=== PATIENT | female | born 1985 | race Caucasian/White ===

== ENCOUNTER 2016-12-25 10:57 | Outpatient (CLI) | payer MEDICAID ==
[2016-12-25 11:48] LABS: BASOPHILS % (AUTO) 0.5 %; EOSINOPHILS % (AUTO) 0.1 %; HCT - HEMATOCRIT 39.2 % (37.0-47.0); HGB - HEMOGLOBIN 13.2 g/dL (12.0-16.0); LYMPHOCYTES # (AUTO) 1.2 10^3/uL (1.5-3.5); LYMPHOCYTES % (AUTO) 14.9 %; MEAN CORPUSCULAR HEMOGLOBIN 30.8 pg (27.0-31.0); MEAN CORPUSCULAR HGB CONC 33.7 g/dL (32.0-36.0); MEAN CORPUSCULAR VOLUME 91.6 fL (81.0-99.0); MEAN PLATELET VOLUME 7.7 fL (7.9-10.8); MONOCYTES # (AUTO) 0.3 10^3/uL (0.0-1.0); MONOCYTES % (AUTO) 3.3 %; NEUTROPHILS # (AUTO) 6.7 10^3/uL (1.5-6.6); NEUTROPHILS % (AUTO) 81.2 %; RED BLOOD COUNT 4.28 10^6/uL (4.20-5.40); RED CELL DISTRIBUTION WIDTH 13.1 % (12.0-15.0); UNCORRECTED WHITE BLOOD COUNT 8.3 x10^3/uL; WHITE BLOOD COUNT 8.3 x10^3/uL (4.8-10.8)
[2016-12-25 12:13] LABS: BILIRUBIN,URINE NEGATIVE (NEGATIVE)
[2016-12-27 16:21] LABS: TEST RESULT REPORT
== END 2016-12-25 10:58 | disposition home or self-care (01) ==
LOC: LAB 10:57
PROVIDERS: ATTEND Registered Nurse
DX: Z36.9 Encounter for antenatal screening, unspecified (principal)
CPT/HCPCS: 36415; 81001; 81599; 85025; 86762; 86850; 86900; 86901; 87340; 87389

== ENCOUNTER 2017-03-18 12:52 | Outpatient (CLI) | payer MEDICAID ==
--- NOTE | 2017-03-20 16:47 | Ultrasound Report ---
OB ANATOMY SCAN: 03/18/2017 CLINICAL INDICATION: anatomy. TECHNIQUE: Real-time scanning was performed with field representative/health education static images obtained. LAST MENSTRUAL PERIOD: 10/22/2016 Clinical Age: 21 weeks 0 days, doctor stated US Age: 21 weeks 0 days EFW Hadlock: 372 EFW% Hadlock: --- Heart Rate: 146 bpm EDC: 07/29/2017 US EDC: 07/29/2017 BPD Hadlock: 21 weeks 2 days; Mean mm 50 HC Hadlock: 20 weeks 6 days; Mean mm 184 AC Hadlock: 21 weeks 1 day; Mean mm 160 FL Hadlock: 20 weeks 1 day; Mean mm 32 Presentation: variable Placental Location: anterior Cervical Length: --- Amniotic Fluid: 15.13 cm FINDINGS: There is a single viable intrauterine gestation. By size, the fetus measures 21 weeks 0 days (21 weeks 0 days per office order). heart rate is 146 BPM. The placenta is anterior, without evidence of previa. Amniotic fluid volume is subjectively normal. The following anatomic structures were visualized and appear normal: The intracranial contents, including the ventricles and posterior fossa; the lips and orbits; the spine; the heart, including 4 chamber view and outflow tracts, and diaphragm; the abdominal contents, including the stomach, the bilateral kidneys, and urinary bladder, as well as a normal 3 vessel cord insertion; 4 limbs. Imaging of the profile is limited by positioning. No free fluid or adnexal lesion is appreciated. IMPRESSION: Single viable intrauterine gestation, with size in keeping with office dating. Limited visualization of the profile, due to positioning. Otherwise, normal anatomic survey. TD: 03/18/2017 19:51 [facility]
== END 2017-03-18 12:53 | disposition home or self-care (01) ==
LOC: DI 12:52
PROVIDERS: ATTEND Registered Nurse
DX: Z34.82 Encounter for supervision of other normal pregnancy, second trimester (principal)
CPT/HCPCS: 76811

== ENCOUNTER 2017-04-30 09:56 | Outpatient (CLI) | payer MEDICAID ==
[2017-04-30 11:53] LABS: MEAN CORPUSCULAR HEMOGLOBIN 31.2 pg (27.0-31.0); MEAN CORPUSCULAR HGB CONC 34.3 g/dL (32.0-36.0); MEAN CORPUSCULAR VOLUME 91.1 fL (81.0-99.0); RED BLOOD COUNT 3.83 10^6/uL (4.20-5.40); RED CELL DISTRIBUTION WIDTH 12.8 % (12.0-15.0); WHITE BLOOD COUNT 9.4 x10^3/uL (4.8-10.8)
[2017-04-30 12:09] LABS: ALBUMIN 3.1 g/dL (3.2-5.5); ALBUMIN/GLOBULIN RATIO 0.8 (1.0-2.2); BILIRUBIN,TOTAL 0.5 mg/dL (0.2-1.0); CALCIUM 8.4 mg/dL (8.5-10.3); CREATININE 0.5 mg/dL (0.4-1.0)
== END 2017-04-30 09:57 | disposition home or self-care (01) ==
LOC: LAB 09:56
PROVIDERS: ATTEND Registered Nurse
DX: Z34.82 Encounter for supervision of other normal pregnancy, second trimester (principal); L29.8 Other pruritus
CPT/HCPCS: 36415; 80053; 82239; 82950; 86850

== ENCOUNTER 2017-06-05 00:46 | Outpatient (CLI) | payer MEDICAID ==
[2017-06-05 01:17] VITALS: BP 111/75
[2017-06-05 01:18] LABS: BILIRUBIN,URINE NEGATIVE (NEGATIVE); GLUCOSE, URINE (UA) NEGATIVE (NEGATIVE); KETONES,URINE (UA) NEGATIVE (NEGATIVE); LEUKOCYTE ESTERASE, URINE TRACE (NEGATIVE); NITRITE,URINE NEGATIVE (NEGATIVE); OCCULT BLOOD,URINE NEGATIVE (NEGATIVE); PH,URINE 6.5 PH (5.0-7.5); PROTEIN,URINE NEGATIVE (NEGATIVE); UROBILINOGEN,URINE 0.2 (NORMAL) E.U./dL (NORMAL)
[2017-06-05 01:22] LABS: CLARITY,URINE CLEAR (CLEAR)
[2017-06-05 01:25] LABS: BACTERIA,URINE Few /HPF (None Seen); RBC,URINE 0-5 /HPF (0-5); SQUAMOUS EPITHELIAL CELL,UR FEW Squamous (<= Few)
== END 2017-06-05 02:00 | disposition home or self-care (01) ==
LOC: WFO 00:46 → FBP 00:47 → WFO 02:00
PROVIDERS: ATTEND Nurse Practitioner Obstetrics & Gynecology
DX: O99.89 Other specified diseases and conditions complicating pregnancy, childbirth and the puerperium (principal); R11.0 Nausea; R35.0 Frequency of micturition; Z3A.32 32 weeks gestation of pregnancy
CPT/HCPCS: 81001; 87086; 99212

== ENCOUNTER 2017-07-02 08:00 | Outpatient (CLI) | payer MEDICAID | END 2017-07-02 08:01 | disposition home or self-care (01) | LOC: LAB.R 08:00 | PROVIDERS: ATTEND Nurse Practitioner Obstetrics & Gynecology | DX: Z36.85 Encounter for antenatal screening for Streptococcus B (principal) | CPT/HCPCS: 87081 ==

== ENCOUNTER 2017-07-02 08:48 | Outpatient (CLI) | payer MEDICAID ==
--- NOTE | 2017-07-03 09:05 | Ultrasound Report ---
OB FOLLOWUP: 07/02/2017 CLINICAL INDICATION: Size, date discrepancy, evaluate growth. COMPARISON: 03/18/2017. TECHNIQUE: Real-time scanning was performed with inbound customer service representative static images obtained. LAST MENSTRUAL PERIOD: 10/22/2016 Clinical Age: 36 weeks 1 day US Age: 36 weeks 0 days EFW Hadlock: 2796 grams EFW% Hadlock: 43% Heart Rate: 136 bpm EDC: 07/29/2017 US EDC: 07/30/2017 BPD Hadlock: 36 weeks 1 day; Mean mm 89 HC Hadlock: 36 weeks 3 days; Mean mm 322 AC Hadlock: 36 weeks 1 day; Mean mm 322 FL Hadlock: 35 weeks 0 days; Mean mm 68 Presentation: cephalic Placental Location: anterior Cervical Length: not seen Amniotic Fluid: RG 22.9 cm; MVP 6.6 cm FINDINGS: There is a single viable intrauterine gestation, in cephalic presentation. heart rate is 136 BPM. The placenta is anterior, without evidence of previa. Amniotic fluid volume is normal, with an RG of 22.9. By size, the fetus measures 36 weeks 0 days (36 weeks 1 day by previous sonogram and office dating). Estimated weight by Hadlock method is 2796 grams. No free fluid or adnexal lesion is appreciated. IMPRESSION: SINGLE VIABLE INTRAUTERINE GESTATION, WITH EXPECTED GROWTH FROM PREVIOUS SONOGRAM. NORMAL RG. TD: 07/02/2017 09:57 MTDD
== END 2017-07-02 08:49 | disposition home or self-care (01) ==
LOC: DI 08:48
PROVIDERS: ATTEND Registered Nurse
DX: O26.843 Uterine size-date discrepancy, third trimester (principal)
CPT/HCPCS: 76816

== ENCOUNTER 2017-07-02 11:03 | Outpatient (CLI) | payer MEDICAID ==
[2017-07-02 11:13] VITALS: BP 127/77
== END 2017-07-02 11:50 | disposition home or self-care (01) ==
LOC: WFO 11:03 → FBP 11:04 → WFO 11:50
PROVIDERS: ATTEND Nurse Practitioner Obstetrics & Gynecology
DX: O36.8130 Decreased fetal movements, third trimester, not applicable or unspecified (principal); Z3A.36 36 weeks gestation of pregnancy; Z36.85 Encounter for antenatal screening for Streptococcus B; O26.843 Uterine size-date discrepancy, third trimester
CPT/HCPCS: 59025; 76816; 87081

== ENCOUNTER 2017-07-08 12:17 | Outpatient (CLI) | payer MEDICAID ==
[2017-07-08 13:05] LABS: BASOPHILS % (AUTO) 0.5 %; EOSINOPHILS % (AUTO) 0.5 %; HGB - HEMOGLOBIN 10.8 g/dL (12.0-16.0); LYMPHOCYTES # (AUTO) 1.5 10^3/uL (1.5-3.5); LYMPHOCYTES % (AUTO) 18.6 %; MEAN CORPUSCULAR HEMOGLOBIN 29.1 pg (27.0-31.0); MEAN CORPUSCULAR HGB CONC 33.2 g/dL (32.0-36.0); MEAN CORPUSCULAR VOLUME 87.5 fL (81.0-99.0); MEAN PLATELET VOLUME 9.1 fL (7.9-10.8); MONOCYTES # (AUTO) 0.3 10^3/uL (0.0-1.0); MONOCYTES % (AUTO) 3.9 %; NEUTROPHILS # (AUTO) 6.1 10^3/uL (1.5-6.6); NEUTROPHILS % (AUTO) 76.5 %; PLT - PLATELET COUNT 231 10^3/uL (130-450); RED BLOOD COUNT 3.71 10^6/uL (4.20-5.40); RED CELL DISTRIBUTION WIDTH 12.9 % (12.0-15.0)
[2017-07-08 13:09] LABS: URIC ACID 4.3 mg/dL (2.6-7.2)
[2017-07-08 13:17] LABS: CREATININE,URINE 22.2 mg/dL
[2017-07-08 13:28] VITALS: BP 112/84
[2017-07-08 13:31] LABS: TOTAL PROTEIN,URINE TIMED < 6 mg/dL
[2017-07-08 13:45] LABS: CREATININE 0.5 mg/dL (0.4-1.0)
== END 2017-07-08 14:00 | disposition home or self-care (01) ==
LOC: WFO 12:17 → FBP 12:19 → WFO 14:00
PROVIDERS: ATTEND Registered Nurse
DX: O13.3 Gestational [pregnancy-induced] hypertension without significant proteinuria, third trimester (principal); Z3A.37 37 weeks gestation of pregnancy
CPT/HCPCS: 36415; 59025; 82565; 82570; 83615; 84156; 84450; 84550; 85025

== ENCOUNTER 2017-07-13 13:44 | Outpatient (CLI) | payer MEDICAID ==
[2017-07-13] MEDS ORDERED: LACTATED RINGERS 1,000 ML IV ONE ×2 (14:46→14:50)
[2017-07-13] MEDS ORDERED: SODIUM CHLORIDE FLUSH 0.9% 10 ML SYRINGE ONE ×2 (14:47→16:28)
[2017-07-13 15:34] LABS: BILIRUBIN,URINE NEGATIVE (NEGATIVE); GLUCOSE, URINE (UA) NEGATIVE (NEGATIVE); KETONES,URINE (UA) NEGATIVE (NEGATIVE); LEUKOCYTE ESTERASE, URINE NEGATIVE (NEGATIVE); NITRITE,URINE NEGATIVE (NEGATIVE); OCCULT BLOOD,URINE NEGATIVE (NEGATIVE); PROTEIN,URINE NEGATIVE (NEGATIVE); UROBILINOGEN,URINE 0.2 (NORMAL) E.U./dL (NORMAL)
[2017-07-13 15:37] LABS: CLARITY,URINE CLEAR (CLEAR)
[2017-07-13 15:48] LABS: BACTERIA,URINE None Seen /HPF (None Seen); RBC,URINE None Seen /HPF (0-5); SQUAMOUS EPITHELIAL CELL,UR MOD Squamous (<= Few)
[2017-07-13 16:56] VITALS: BP 123/77
== END 2017-07-13 16:40 | disposition home or self-care (01) ==
LOC: WFO 13:44 → FBP 13:45 → WFO 16:40
PROVIDERS: ATTEND Registered Nurse
DX: O47.1 False labor at or after 37 completed weeks of gestation (principal); Z3A.37 37 weeks gestation of pregnancy
CPT/HCPCS: 81001; 99213; 99214; J7120; 87086

== ENCOUNTER 2017-07-13 19:08 | Outpatient (CLI) | payer MEDICAID ==
[2017-07-13 19:35] VITALS: BP 130/75
== END 2017-07-13 22:25 | disposition home or self-care (01) ==
LOC: WFO 19:08 → FBP 19:09 → WFO 22:25
PROVIDERS: ATTEND Registered Nurse
DX: O47.1 False labor at or after 37 completed weeks of gestation (principal); Z3A.37 37 weeks gestation of pregnancy
CPT/HCPCS: 99213

== ENCOUNTER 2017-07-21 09:57 | Inpatient (IN) | payer MEDICAID ==
[2017-07-21] MEDS ORDERED: SODIUM CHLORIDE FLUSH 0.9% 10 ML SYRINGE IVP PRN (10:05)
[2017-07-21] MEDS: SODIUM CHLORIDE FLUSH 0.9% 10 ML SYRINGE IVP SCH ×2 (11:08→21:17)
[2017-07-21 11:24] LABS: BASOPHILS % (AUTO) 0.4 %; EOSINOPHILS % (AUTO) 0.1 %; HGB - HEMOGLOBIN 10.8 g/dL (12.0-16.0); LYMPHOCYTES # (AUTO) 1.3 10^3/uL (1.5-3.5); LYMPHOCYTES % (AUTO) 16.1 %; MEAN CORPUSCULAR HEMOGLOBIN 28.8 pg (27.0-31.0); MEAN CORPUSCULAR HGB CONC 33.5 g/dL (32.0-36.0); MEAN CORPUSCULAR VOLUME 85.8 fL (81.0-99.0); MEAN PLATELET VOLUME 9.1 fL (7.9-10.8); MONOCYTES # (AUTO) 0.3 10^3/uL (0.0-1.0); MONOCYTES % (AUTO) 4.1 %; NEUTROPHILS # (AUTO) 6.6 10^3/uL (1.5-6.6); NEUTROPHILS % (AUTO) 79.3 %; PLT - PLATELET COUNT 225 10^3/uL (130-450); RED BLOOD COUNT 3.74 10^6/uL (4.20-5.40); RED CELL DISTRIBUTION WIDTH 13.3 % (12.0-15.0); WHITE BLOOD COUNT 8.4 x10^3/uL (4.8-10.8)
[2017-07-21] MEDS: LACTATED RINGERS 1,000 ML IV SCH ×3 (11:39→17:18)
--- NOTE | 2017-07-21 11:39 | HISTORY & PHYSICAL EXAMINATION ---
Admit History - Instructions [place]/Slash: -Left hand click circles element as positive or present. -Right hand click slashes element as negative or not present. - Visit Reason Visit Reason: Other - : 3 Parity: 2 Premature: 0 Ectopic: 0 : 0 Care: positive: [facility] Risk/History: positive: None Complications This : positive: None Smoking Status: Never smoker - Mother's Labs Mother's Blood Type: positive: B Mother's RH: positive: Positive GBS: positive: Group B Step Negative Rubella Status: positive: Equivocal - Other Maternal History Other Maternal History: HPI: This 32yo @ 39.0wks gestation by L=8.1wk ultrasound who presents for elective induction of labor at 39.0wks gestation. Upon evaluation she was noted to be 3-4/75/-2, vertex, with a bulging BOW. She reports back discomfort and inability to sleep. Denies VB or Lof. +FM. She was admitted to L&D for active management. Dating criteria: 1.) LMP 10/22/2016 2.) First ultrasound 12/23/2016 @ 8 weeks - agrees 3.) First exam 12/23/2016 @ 8 weeks - agrees 4.) Serial exam @ 13-39 weeks agrees OB History: G1: 2010, 39 weeks, 12 hour labor, vaginal delivery, male, epidural 6lbs 4 oz, complications - polyhydramnios IOL G2: 2012, 39wks, 10 hours, vaginal, male, epidural. Complications; 5lbs 14oz, polyhydramnios IOL G3: current COMMUNICATIONS SPECIALIST History: No COMMUNICATIONS SPECIALIST surgeries Abnormal paps and treatment: Hx 1 abnormal pap (unsure). Pap reverted to normal per pateint. 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 EFW 3000g SVE 3-4/75/-2, mid-position, soft, bulging BOW, vertex labs: Early labs: 12/31/2016 Blood type B pos, antibody neg Hgb 13.2; Hct 39.2; PLT 207 Rubella equivocal HIV non-reactive GC/CT neg Hep B non-reactive HIV non-reactive FTA-ABS non-reactive 05/01/2017 CMP: WNL 28 week labs: Hgb 12.0 Antibody neg 1 hour GTT 113 GBS negative Ultrasounds: 03/26/2017 - FAS WNL, placenta anterior, no previa, RG WNL, size c /w dating 07/02/2017 - 43%tile, RG 22.9, 2796 grams, size c/w dating Assessment: 32yo @ 39.0wks gestation by L=8.1wks Non-medical/logistic IOL secondary to maternal discomfort Desires epidural for pain management Plan: AROM now Admit to L&D for active management Epidural per maternal request Anticipate spontaneous vaginal delivery Meds/Allgy - Allergies Allergies/Adverse Reactions: Allergies Allergy/AdvReac Type Severity Reaction Status Date / Time No Known Drug Allergies Allergy Verified 07/08/17 12:25 Physical - Abdominal Exam Vital Signs: Temp Pulse Resp BP Pulse Ox 36.7 C 100 18 128/81 H 07/21/17 10:14 07/21/17 10:14 07/21/17 10:14 07/21/17 10:14
[2017-07-21] MEDS ORDERED: fent/BUPIV 2 MCG/0.125% 250 ML EP ONE (12:57)
[2017-07-21] MEDS ORDERED: ePHEDrine 50 MG/ML VIAL IVP PRN (13:28)
[2017-07-21] MEDS ORDERED: NALOXONE 0.4 MG/ML VIAL IVP PRN (13:28)
[2017-07-21] MEDS ORDERED: ONDANSETRON 4 MG/2 ML VIAL IVP PRN (13:28)
[2017-07-21] MEDS ORDERED: fent/BUPIV 2 MCG/0.125% 250 ML EP PRN (13:28)
[2017-07-21] MEDS ORDERED: LACTATED RINGERS 500 ML IV ONE (13:28)
[2017-07-21] MEDS ORDERED: NALBUPHINE 20 MG/ML AMP IVP PRN (13:28)
[2017-07-21] MEDS ORDERED: BUPIVACAINE 0.25% PF 30 ML VIAL SUBQ ONE (13:30)
[2017-07-21] MEDS ORDERED: ePHEDrine 50 MG/ML VIAL IVP ONE (13:31)
--- NOTE | 2017-07-21 16:24 | PROVIDER PROGRESS NOTE ---
Labor Progress Note - Uterine Monitoring Uterine Monitoring Mode: positive: External toco Contraction Frequency (min/apart): 3-6 Contraction Intensity: positive: Moderate to strong Uterine Resting Tone: positive: Soft - Monitoring Monitor Mode: positive: External ultrasound Heart Rate Baseline: 120 Heart Rate Variability: positive: Moderate (6-25 bmp) Accelerations: positive: Present, 15x15 Decelerations: positive: None Strip Review: positive: Category I - Vaginal Exam Dilation (in cm): 7 Effacement (%): 90 Station: -1 Cervical Position: Anterior - Labor Progress Note Labor Progress Note/Additional Text: S: Debbi is comfortable w/ her epidural in place. She feels occasional pressure but no discomfort. She has mostly been resting. Her is present @ the bedside & is involved & supportive O: AAOx3, NAD WA gravid female VSS admission labs notable for hgh 10.9 EFM: BL 120bpm, +accels, no decels, mod valery TOCO: UCs q 3-6 min x60-80 sec, palp mod-strong SVE: 7/90/-1, soft, anterior, ongoing leakage of CAF; position TG A: 32 y/o @ 39 weeks' gestation, logistic IOL w/ AROM only Active labor AROM for CAF @ 1200, for a total ruptured duration of 4.5 hours, afebrile, GBS neg FHTs cat I Adequate pain control w/ epidural anesthesia Mild antepartum anemia P: 1. Reassess cervical status x4 hours, earlier PRN 2. Pitocin augmentation PRN no further cervical change 3. Encouraged maternal rest 4. Plan AMTSL to minimize EBL w/ delivery 5. Reviewed plan of care w/ pt, partner & RN @ bedside; all in agreement, without concerns.
[2017-07-21] MEDS ORDERED: LIDOCAINE 1% 50 ML MDV ONE (19:15)
[2017-07-21] MEDS: OXYTOCIN 10 UNIT/ML VIAL IVP SCH (19:18)
[2017-07-21] MEDS ORDERED: OXYTOCIN 10 UNIT/ML VIAL IVP ONE (19:20)
[2017-07-21] MEDS: OXYTOCIN 10 UNIT/ML VIAL ONE ×2 (19:21→20:18)
--- NOTE | 2017-07-21 19:30 | DELIVERY NOTE ---
Delivery Note - Labor Labor: positive: Induced by ARM - Infant Delivery Method Delivery Method: positive: Spontaneous vaginal delivery - Presentation Presentation: positive: Vertex, TG - left occiput anterior - Nuchal Cord Nuchal Cord: positive: None - Anesthetic Anesthetic Type: - Amniotic Fluid Description Amniotic Fluid Description: positive: Clear - Episiotomy Type Episiotomy Type: positive: None - Laceration Laceration: positive: None - Delivery Outcome Delivery Outcome: positive: Livebirth - : positive: Placed in direct skin contact with mother, Stimulated, [place] used [place] sex: positive: Male - Cord Cord: positive: 3 vessels, Other (marginal insertion) - Placenta Placenta: positive: Intact, Spontaneous (Vinh) - Estimated Blood Loss Estimated Blood Loss (in cc): 350 - Post Delivery Events Post Delivery Events: positive: No post delivery events - Delivery Comments (Free Text/Narrative) Delivery Comments (Free Text/Narrative): Debbi Bejarano is a 32 y/o [id number] who presented for AROM IOL secondary to discomfort. She underwent AROM for CAF @ 1200. She began kenn uncomfortably shortly thereafter & received epidural anesthesia for her discomfort @ 1300. She progressed spontaneously w/o further augmentation. FHTs were monitored electronically t/o & were consistently cat I. She was found to be completely dilated @ 1852, for a total 1st stage duration of 7hours , 52 minutes. She pushed w/ direction to viable male in TG position over intact perineum @ 1916, for a total 2nd stage duration of 24 minutes. vigorous w/ spontaneous, lusty cry. Placed to maternal abd for drying/stim. Delayed cord clamping until cessation of pulsation, then cord clamped x2 by CNM , cut by FOB. 3VC noted, cord blood obtained. Active management of the third stage w/ 10units IM Pitocin. Placenta delivered spontaneously & intact, Vinh , @ 1921, for a total 3rd stage duration of 5 minutes. FF @ U-1. Vagina & perineum inspected & found to be intact. EBL 350mL. Infant weight pending, Apgars 8/9. Mother & stable, planning to breastfeed.
[2017-07-21] MEDS ORDERED: HYDROCORTISONE/PRAMOXINE 10 GM PR PRN (19:34)
[2017-07-21] MEDS ORDERED: MAGNESIUM HYDROXIDE 2,400 MG/30 ML UDC PO PRN (19:34)
[2017-07-21] MEDS ORDERED: WITCH HAZEL/GLYCERIN 1 EACH MED..PAD TOP PRN (19:34)
[2017-07-21] MEDS ORDERED: OXYTOCIN/SODIUM CHLORIDE 250 ML IV ONE (19:34)
[2017-07-21] MEDS ORDERED: HYDROCORTISONE 1% CREAM 28 GM TUBE PR PRN (19:34)
[2017-07-21] MEDS: ACETAMINOPHEN 500 MG TABLET PO SCH (20:48)
[2017-07-21] MEDS ORDERED: SODIUM CHLORIDE FLUSH 0.9% 10 ML SYRINGE ONE (21:26)
[2017-07-21] MEDS: CELECOXIB 100 MG CAPSULE PO SCH (21:52)
[2017-07-21] MEDS: DOCUSATE SODIUM 100 MG CAPSULE PO SCH (21:52)
[2017-07-22] MEDS: OXYTOCIN 10 UNIT/ML VIAL IVP SCH (00:34)
[2017-07-22] MEDS: ACETAMINOPHEN 500 MG TABLET PO SCH ×2 (04:22→11:58)
[2017-07-22] MEDS ORDERED: SODIUM CHLORIDE FLUSH 0.9% 10 ML SYRINGE ONE (04:30)
--- NOTE | 2017-07-22 07:59 | PROVIDER PROGRESS NOTE ---
Subjective - Prog Note Date Prog Note Date: 07/22/17 Prog Note Time: 08:00 - Subjective Pt reports feeling: Improved Subjective: Debbi is doing well. She is ambulating & voiding w/o difficulty. She is passing flatus & is tolerating a regular diet. She reports minimal lochia rubra. Her pain is well-controlled w/ non-opioid analgesia. She is exclusively w/o difficulty. Objective - Vital Signs/Intake & Output Reviewed Vital Signs: Yes Vital Signs: Vital Signs x48h Temp Pulse Resp BP Pulse Ox 07/22/17 02:15 36.8 C 65 16 112/66 100 Intake & Output: Intake & Output 07/19/17 07/20/17 07/21/17 07/22/17 23:59 23:59 23:59 23:59 Intake Total 2400 Output Total 1625 1900 Balance 775 -1900 - Objective General Appearance: positive: No acute distress, Alert Eyes Bilateral: positive: Normal inspection, PERRL, EOMI Respiratory: positive: Chest non-tender, No respiratory distress, Breath sounds nml Cardiovascular: positive: Regular rate & rhythm, No murmur, No gallop Abdomen: positive: Non-tender, No distention, Other (FF U-1) Skin: positive: Color nml, No rash, Warm, Dry Extremities: positive: Non-tender, Full ROM, Nml appearance, No pedal edema. negative: Calf tenderness Neurologic/Psychiatric: positive: Oriented x3, CN's nml (2-12), Motor nml, Sensation nml, Mood/affect nml Comments/Other: Breast evaluation deferred secondary to pt request. Perineal inspection deferred secondary to pt request. No complaints. - Lab Results Fish Bones: 07/21/17 11:05 Other Labs: Lab Results x24hrs 07/21/17 Range/Units 11:05 WBC 8.4 (4.8-10.8) x10^3/uL RBC 3.74 L (4.20-5.40) 10^6/uL Hgb 10.8 L (12.0-16.0) g/dL Hct 32.1 L (37.0-47.0) % MCV 85.8 (81.0-99.0) fL MCH 28.8 (27.0-31.0) pg MCHC 33.5 (32.0-36.0) g/dL RDW 13.3 (12.0-15.0) % Plt Count 225 (130-450) 10^3/uL MPV 9.1 (7.9-10.8) fL Neut # 6.6 (1.5-6.6) 10^3/uL Lymph # 1.3 L (1.5-3.5) 10^3/uL Hamblen # 0.3 (0.0-1.0) 10^3/uL Eos # 0.0 (0.0-0.7) 10^3/uL Baso # 0.0 (0.0-0.1) 10^3/uL Absolute Nucleated RBC 0.00 x10^3/uL Nucleated RBC % 0.0 /100WBC Assessment/Plan - Problem List (1) (normal spontaneous vaginal delivery) Impression: A: 32 y/o s/p 07/21/2017 w/o laceration, PPD #1 Normal uterine involution Adequate pain control well P: 1. Continue routine pp care 2. support provided & to continue in ongoing fashion 3. Anticipate d/c home PPD#2
[2017-07-22] MEDS: CELECOXIB 100 MG CAPSULE PO SCH (10:07)
[2017-07-22] MEDS: DOCUSATE SODIUM 100 MG CAPSULE PO SCH (10:07)
--- NOTE | 2017-07-22 16:25 | Discharge Plan ---
Discharge Plan Disposition: 01 Home, Self Care Condition: Good Prescriptions: Ibuprofen 800 mg PO Q8HR PRN #30 tablet PRN Reason: Pain Diet: Regular Activity Restrictions: pelvic rest x6 weeks Shower Restrictions: No Driving Restrictions: No No Smoking: If you smoke, Please STOP! Call for help.
--- NOTE | 2017-07-22 16:27 | DISCHARGE SUMMARY ---
"Discharge Summary Admit Date: 07/21/17 Discharge Date: 07/22/17 Discharging Provider: derrek Code Status: Attempt Resuscitation Condition at Discharge: Good Discharge Disposition: 01 Home, Self Care Discharge Facility Name: [facility] - DIAGNOSES Admission Diagnoses: 39 WEEKS OF Discharge Diagnoses with Status of Each Condition: - HPI History of Present Illness: MAXWELL ZHANG IS A 32 Y/O [id number] WHO PRESENTED W/ PRODROMAL CONTRACTIONS & UNDERWENT AROM FOR LOGISTIC IOL. SHE RECEIVED EPIDURAL ANESTHESIA W/IN AN HOUR OF AROM FOR HER DISCOMFORT. SHE PROGRESSED READILY W/O ANY FURTHER AUGMENTATION TO COMPLETE DILATATION & DELIVERED A VIABLE MALE VAGINALLY OVER AN INTACT PERINEUM W/O COMPLICATION. - CONSULTS | PROCEDURES Consultations: ANESTHESIA Procedures: AROM EPIDURAL PLACEMENT - HOSPITAL COURSE Hospital Course: , MAXWELL IS AMBULATING & VOIDING W/O DIFFICULTY. SHE IS PASSING FLATUS & TOLERATING A REGULAR DIET. SHE IS HAVING MINIMAL LOCHIA RUBRA & HER PAIN IS WELL-CONTROLLED W/ NON-OPIOID ANALGESIA. SHE IS EXCLUSIVELY W/O DISCOMFORT OR DIFFICULTY. SHE DENIES HX OF PP DEPRESSION. SHE DOES NOT PLAN TO RETURN TO WORK. HER PARTNER WILL BE OF LIMITED ASSISTANCE BECAUSE OF A RECENT INJURY BUT SHE REPORTS OTHER EXCELLENT SOCIAL SUPPORT. HER PARTNER HAD A VASECTOMY FOR CONTRACEPTION IN MAY & INTENDS TO RETURN IN EARLY AUGUST FOR CONFIRMATION OF STERILITY. SHE IS ABLE TO FULLY ARTICULATE PP WARNING S/SX, INCLUDING PP DEPRESSION S/SX, AND PP AFTERCARE INSTRUCTIONS. SHE IS READY TO LEAVE THE HOSPITAL. - ALLERGIES Allergies/Adverse Reactions: Allergies Allergy/AdvReac Type Severity Reaction Status Date / Time No Known Drug Allergies Allergy Verified 07/08/17 12:25 - MEDICATIONS Home Medications: Ambulatory Orders Medication Instructions Recorded Confirmed Ibuprofen 800 mg PO Q8HR PRN #30 tablet 07/22/17 - PHYSICAL EXAM AT DISCHARGE General Appearance: positive: No acute distress, Alert Eyes Bilateral: positive: Normal inspection Respiratory: positive: No respiratory distress, Breath sounds nml Cardiovascular: positive: Regular rate & rhythm, No murmur, No gallop Abdomen: positive: Non-tender, No distention, Other (FF U-1) Skin: positive: Color nml, No rash, Warm, Dry Extremities: positive: Non-tender, Full ROM, Nml appearance, No pedal edema. negative: Calf tenderness Neurologic/Psychiatric: positive: Oriented x3, CN's nml (2-12), Motor nml, Sensation nml, Mood/affect nml - LABS Result Diagrams: 07/21/17 11:05 - FOLLOW UP Follow Up: X1 WEEK FOR ASSISTANCE, X3 WEEKS FOR EVALUATION, X8 WEEKS FOR ANNUAL EXAM, EARLIER PRN - TIME SPENT Time Spent in Discharge (Minutes): 30"
[2017-07-22 20:40] VITALS: BP 125/82
--- NOTE | 2017-07-22 20:41 | Labor Flowsheet ---
Labor Flowsheet Datetime Report Generated by CPN: 07/22/2017 20:41 Datetime: 07/22/2017 20:12 VITAL SIGNS NBP Sys/[place]/Mean (mmHg): 125 : 82 : 90 Pulse: 138 LaborFlag: Labor Datetime: 07/21/2017 21:19 SpO2 (%): 100 Datetime: 07/21/2017 19:15 Stage of : Labor UTERINE ACTIVITY Monitor Mode: External Frequency (min): Indeterminate d/t pt pushing. ASSESSMENT A Monitor Mode: Telemetry FHR Baseline Rate : Unable to determine baseline d/t pt continous pushing effort. FHTs from 80s-140 s. Provider at the BS. Actions for Decelerations: Provider Notified Category: Category II Datetime: 07/21/2017 19:00 Quality: Strong Duration (sec): 80-100 Pattern: Normal: <= 5 Contractions in 10 Minutes Resting Tone (Palpate): Relaxed Variability: Moderate 6-25 bpm Accelerations: 15X15 Decelerations: Variable (Annotations: x1, lasting 60 secs, down to 50s. Pt postion changed from sit ting to left lat. Provider @ BS 1 min after resolved. ) COMMUNICATION Communication: Provider at Bedside Communication Comments: [place]a Datetime: 07/21/2017 18:58 PATIENT CARE Patient Position/Activity: Left Lateral Datetime: 07/21/2017 18:52 VAGINAL EXAM Dilatation (cm): 10.0 Effacement (%): 100 Station: 1 Exam by: EM Datetime: 07/21/2017 18:45 FHR Baseline Changes: Return to Previous Baseline Anesthesia Level Check: T10- Umbilicus Datetime: 07/21/2017 18:15 Monitor Interventions for UA: [address] Adjusted Datetime: 07/21/2017 18:10 Contraction Comments: mom scratching her belly Datetime: 07/21/2017 17:50 Monitor Interventions for FHR: Ultrasound Adjusted Datetime: 07/21/2017 17:38 I/O Interventions: Straight Cath (ml) @ 525 Patient Care Comments: Some resistance initially inserting straight cath. Possible pressure from ba by's head on the urethra. Once in cath inserted easily for an output of 525mL Datetime: 07/21/2017 17:15 Respirations: 18 Temperature (C): 36.3 Datetime: 07/21/2017 16:17 Position 'A': Left Occipital Anterior Datetime: 07/21/2017 15:15 Temperature Route: Oral Datetime: 07/21/2017 13:21 Anesthesia Comments: ephedrine given by anesthesia Datetime: 07/21/2017 13:09 Epidural Procedure: Loading Dose Datetime: 07/21/2017 12:57 PROCEDURE TIME OUT Procedure Verify: Correct Patient Identity; Correct Side and Site are Marked; Accurate Procedure Co nsent Form; Agreement on Procedure to be Done; Correct Patient Position; Relevant Images and Results are Properly Labeled and Displayed; Addressed Need to Administer Antibiotics or Fluids for Irrigation ; Safety Precautions Based on Patient History or Medication Use Datetime: 07/21/2017 12:52 ANESTHESIA Anesthesia Plans: Epidural Epidural Positioning: Sitting Datetime: 07/21/2017 11:44 Membrane Status: Ruptured Membranes Rupture Method: Artificial Amniotic Fluid Color: Clear Amniotic Fluid Amount: Moderate Cervix, Consistency: Soft
== END 2017-07-22 20:30 | disposition home or self-care (01) | DRG 775 ==
LOC: WFO 09:57 → FBP 09:57 → WFO 09:59 → FBP 10:00
PROVIDERS: ADMIT Nurse Practitioner Obstetrics & Gynecology; ATTEND Registered Nurse
PROC: 10E0XZZ Delivery of Products of Conception, External Approach (ICD-10-PCS; principal; 2017-07-21)
PROC: 10907ZC Drainage of Amniotic Fluid, Therapeutic from Products of Conception, Via Natural or Artificial Opening (ICD-10-PCS; 2017-07-21)
DX: O80 Encounter for full-term uncomplicated delivery (principal); Z3A.39 39 weeks gestation of pregnancy; Z37.0 Single live birth
CPT/HCPCS: 85025